=== PATIENT | male | born 1955 | race American Indian/Alaskan Native ===

== ENCOUNTER 2018-02-22 08:45 | Day surgery (SDC) | payer OTHER ==
--- NOTE | 2018-02-22 09:28 | Anesthesia Consultation ---
Anesthesia Consult and Med Hx Date of service: 02/22/18 - Airway Anesthetic Teeth Evaluation: Good ROM Head & Neck: Adequate Mental/Hyoid Distance: Adequate Mallampati Class: Class II Intubation Access Assessment: Good - Pulmonary Exam CTA: Yes - Cardiac Exam Cardiac Exam: RRR - Pre-Operative Health Status ASA Pre-Surgery Classification: ASA3 Proposed Anesthetic Plan: MAC - Pulmonary Hx Smoking: Yes Hx Asthma: No SOB: Yes COPD: No Hx Pneumonia: Yes Hx Sleep Apnea: No - Cardiovascular System Hx Hypertension: Yes Hx Coronary Artery Disease: Yes (CAROTID STENOSIS) Hx Heart Attack/AMI: Yes (1999) Hx Angina: Yes (NO NTG USE) Hx Peripheral Vascular Disease: Yes - Central Nervous System Hx Seizures: No CVA: Yes (2010) Hx Psychiatric Problems: Yes - Gastrointestinal Hx Gastroesophageal Reflux Disease: Yes (MILD) - Endocrine Hx End Stage Renal Disease: No - Other Systems Hx Alcohol Use: No Hx Substance Use: No Hx Cancer: No Hx Obesity: No
--- NOTE | 2018-02-22 11:19 | Anesthesia Day of Surgery ---
Anesthesia Day of Surgery - Day of Surgery Patient Examined: Yes Patient H&P Reviewed: Yes Patient is NPO: Yes Beta Blockers: Yes
[2018-02-22] MEDS ORDERED: DIPRIVAN 10 MG/ML IV ONE (11:48)
[2018-02-22] MEDS ORDERED: NACL 0.9% 1000 ML 1,000 ML IV SCH (12:00)
[2018-02-22] MEDS ORDERED: NORMODYNE IV ONE (13:10)
[2018-02-22] MEDS: NORMODYNE IV PRN ×2 (13:12→13:26)
[2018-02-22] MEDS ORDERED: XYLOCAINE MPF 2% ONE (13:30)
--- NOTE | 2018-02-22 13:38 | Operative Report ---
Operative Report Operative Report: Date of procedure: 02/22/2018 Procedure: Esophagogastroduodenoscopy with multiple mucosal biopsies. Attending physician: Ricki Recinos MD Mining Analyst: Ricki Recinos MD Indication: Patient is a 63-year-old male who presented history of dysphagia. He also describes recurrent indigestion or heartburn. Patient has underlying history of cerebrovascular accident and has had oropharyngeal dysphagia. There has been a concern, whether patient's dysphagia is purely oropharyngeal or if patient has a mechanical cause of obstruction as well. A consideration has been in place as to the cause of patient's ineffective oral intake and concerns as to whether patient has a mechanical cause of obstruction which is impeding his ability to swallow or if he is unable to propagate boluses from the back of his mouth into the esophagus due to well-defined oropharyngeal dysphagia. It is felt however that if patient does have mechanical obstruction , he may benefit from esophageal dilation. However if the endoscopic findings suggest that patient does not have a mechanical cause of obstruction, then the endoscopic findings will be helpful to provide additional clarification regarding patient's ability to take orally and therefore help direct his treatment further. This endoscopy therefore is done under these circumstances. It is hoped that the endoscopic findings, will hopefully help direct patient's treatment further. Consent: Informed consent was obtained after advising the patient and family regarding nature of this procedure, its indications, potential benefits as well as possible complications including but not limited to bleeding perforation and adverse reaction to medication, infection as well as other cardiopulmonary complications. An informed written and verbal consent was then obtained after due opportunity was provided for questions and answers. Monitoring: Patient was monitored continuously with pulse oximetry and electrocardiographic recordings as well as blood pressure recordings. Vital signs remained stable throughout this procedure with no untoward events. Preoperative assessment: Patient was assessed immediately prior to this procedure for capacity to tolerate monitored anesthesia care and moderate sedation as well as general anesthesia. Patient's ASA classification is 3, Mallampati class is 2, Hyomental distance is 3. Instrument: Origin Digital video endoscope Medications: Propofol, given intravenously in divided doses. For details please refer to anesthesia records. Description of procedure: Patient was placed in the left lateral decubitus position after achieving sedation, the endoscope was introduced into the esophagus under direct vision. It was then advanced beyond the esophagus into the stomach and then beyond the stomach into the duodenum and to the second portion of the duodenum. It was subsequently withdrawn with careful inspection of all mucosal surfaces with the following findings. Findings: The esophagus was widely patent with no evidence of a stricture. There was mild erosive esophagitis involving the distal esophagus. There was a diminutive hiatal hernia. There was erythema in the gastric antrum with gastric antral erosions. Biopsies were obtained from the antrum for histopathology. The duodenum was normal to second portion. Impression: Mild erosive esophagitis. Hiatal hernia. Gastric antral erythema. Gastric antral erosions. Plan: Follow pathology report. Continue treatment with proton pump inhibitors. There is no evidence of stricturing this patient. It appears that his problems swallowing is purely due to oropharyngeal dysphagia. It may well be that patient will benefit from a gastrostomy tube placement in the near future.
[2018-02-22] MEDS ORDERED: DILAUDID IV PRN (13:47)
[2018-02-22] MEDS ORDERED: DILAUDID ONE (13:49)
--- NOTE | 2018-02-22 13:57 | Discharge Summary ---
Short Stay Discharge Plan Activity: advance as tolerated Weight Bearing Status: Partial Weight Bearing Diet: thickened liquids, other (Mechanical soft diet) Additional Instructions: Post Sedation D/C Instructions When you return home you may resume your regular diet unless otherwise directed. Go directly home from the hospital and rest quietly. You may resume normal activities tomorrow. Do NOT drive, return to work, operate any machinery or make any important personal or business decisions today. Do NOT drink any alcohol or take nerve or sleeping drugs. They add to the effects of the medicine still present in your body. Follow up with: JANES EDWARDS MD [Primary Care Provider] - 7 Days
[2018-02-22] MEDS ORDERED: APRESOLINE IV ONE (14:00)
[2018-02-22 14:16] VITALS: BP 131/84
== END 2018-02-22 08:46 | disposition home or self-care (01) ==
LOC: GIO 08:45
PROVIDERS: ATTEND Internal Medicine Gastroenterology
DX: K21.0 Gastro-esophageal reflux disease with esophagitis (principal); K31.89 Other diseases of stomach and duodenum; K44.9 Diaphragmatic hernia without obstruction or gangrene; I10 Essential (primary) hypertension; I25.10 Atherosclerotic heart disease of native coronary artery without angina pectoris; I25.2 Old myocardial infarction; I73.9 Peripheral vascular disease, unspecified; F17.200 Nicotine dependence, unspecified, uncomplicated; Z86.73 Personal history of transient ischemic attack (TIA), and cerebral infarction without residual deficits; Z88.0 Allergy status to penicillin
CPT/HCPCS: 43239; 88305; 88342; J0360; J1170; J2704; J7030

== ENCOUNTER 2018-03-03 09:17 | Outpatient (CLI) | payer OTHER ==
--- NOTE | 2018-03-03 10:47 | Fluoroscopy Report ---
MODIFIED BARIUM SWALLOW INDICATION: Dysphagia. COMPARISON: None similar. FINDINGS: Fluoroscopy with video provided by radiologist for speech therapist to assess the swallowing mechanism. Food items of various consistencies given. Aspiration noted. Few small surgical clips in the neck. Edentulous jaw. One image recorded. IMPRESSION: Successful modified barium swallow. Please refer to detailed report from speech pathologist. Thank you for the opportunity to participate in this patient's care.
== END 2018-03-03 09:18 | disposition home or self-care (01) ==
LOC: PT 09:17
PROVIDERS: ATTEND Family Medicine
DX: I69.991 Dysphagia following unspecified cerebrovascular disease (principal); I69.922 Dysarthria following unspecified cerebrovascular disease; M27.9 Disease of jaws, unspecified; I10 Essential (primary) hypertension; J44.9 Chronic obstructive pulmonary disease, unspecified; E78.5 Hyperlipidemia, unspecified; Z98.890 Other specified postprocedural states
CPT/HCPCS: 74230

== ENCOUNTER 2018-04-08 12:33 | Day surgery (SDC) | payer OTHER ==
[~2018-04-08 12:33] MED LIST: NACL 0.9% 1000 ML 1,000 ML IV SCH; NACL 0.9% 1000 ML 1,000 ML ONE
[2018-04-08] MEDS ORDERED: NORMODYNE IV SCH (13:46)
--- NOTE | 2018-04-08 13:47 | Anesthesia Consultation ---
Anesthesia Consult and Med Hx Date of service: 04/08/18 - Airway Anesthetic Teeth Evaluation: Edentulous ROM Head & Neck: Adequate Mental/Hyoid Distance: Adequate Mallampati Class: Class III Intubation Access Assessment: Probably Good - Pulmonary Exam CTA: Yes - Cardiac Exam Cardiac Exam: RRR - Pre-Operative Health Status ASA Pre-Surgery Classification: ASA4 Proposed Anesthetic Plan: MAC - Pulmonary Hx Smoking: Yes (quit) Hx Asthma: No SOB: Yes COPD: No Hx Pneumonia: Yes Hx Sleep Apnea: No - Cardiovascular System Hx Hypertension: Yes Hx Coronary Artery Disease: Yes (CAROTID STENOSIS) Hx Heart Attack/AMI: Yes Hx Angina: Yes (NO NTG USE) Hx Peripheral Vascular Disease: Yes - Central Nervous System Hx Seizures: No CVA: Yes Hx Psychiatric Problems: Yes - Gastrointestinal Hx Gastroesophageal Reflux Disease: Yes (MILD) - Endocrine Hx End Stage Renal Disease: No - Other Systems Hx Alcohol Use: No Hx Substance Use: No Hx Cancer: No Hx Obesity: No
[2018-04-08] MEDS ORDERED: NORMODYNE IV ONE (13:48)
--- NOTE | 2018-04-08 13:48 | Anesthesia Day of Surgery ---
Anesthesia Day of Surgery - Day of Surgery Patient Examined: Yes Patient H&P Reviewed: Yes Patient is NPO: Yes
[2018-04-08] MEDS ORDERED: DIPRIVAN 10 MG/ML IV ONE (15:08)
[2018-04-08] MEDS ORDERED: XYLOCAINE 1% 20 mL ONE (15:10)
[2018-04-08] MEDS ORDERED: TRIPLE ANTIBIOTIC TP ONE (15:13)
[2018-04-08] MEDS ORDERED: VERSED ONE (15:18)
[2018-04-08] MEDS ORDERED: GARAMYCIN/NS 80 MG/100 ML 100 ML IV ONE (15:18)
[2018-04-08] MEDS ORDERED: CLEOCIN 600 MG/50 mL 600 MG/50 ML BAG IV NR (15:30)
--- NOTE | 2018-04-08 16:04 | Operative Report ---
Operative Report Operative Report: Operative Report: Date of procedure: 04/08/2018 Procedure: Esophagogastroduodenoscopy with attempted percutaneous endoscopic gastrostomy tube placement. Attending physician: Ricki Recinos MD Logging Specialist: Ricki Recinos MD Indication: Patient is an 63-year-old male who presented with a history of oropharyngeal dysphagia, poor oral intake and weight loss. Patient's oropharyngeal dysphagia is resulted from a stroke. Patient has had continued evaluation by speech pathology and also trial of multiple consistencies of food. His oral intake remains grossly inadequate on account of his oropharyngeal dysphagia. It was felt that this was now medically necessary to place a gastrostomy tube to help with enteral feeding and administration of medications. Patient is moderately malnourished. An upper endoscopy is done to place a percutaneous endoscopic gastrostomy tube for enteral feeding and administration of medications. Consent: Informed consent was obtained after advising the patient and family regarding nature of this procedure, its indications, potential benefits as well as possible complications including but not limited to bleeding perforation and adverse reaction to medication, infection as well as other cardiopulmonary complications. An informed written and verbal consent was then obtained after due opportunity was provided for questions and answers. Monitoring: Patient was monitored continuously with pulse oximetry and electrocardiographic recordings as well as blood pressure recordings. Vital signs remained stable throughout this procedure with no untoward events. Preoperative assessment: Patient was assessed immediately prior to this procedure for capacity to tolerate monitored anesthesia care and moderate sedation as well as general anesthesia. Patient's ASA classification is 3, Mallampati class is 2, Hyomental distance is 3. Instrument: YUPIQ video endoscope. 20 [place] percutaneous endoscopic gastrostomy tube kit Medications: Propofol given intravenously in divided doses. For details please refer to anesthesia records. Gentamicin 1 g given intravenously immediately prior to beginning of procedure Clindamycin was also to be given however was not administered as procedure was not completed Description of procedure: Patient was placed in a supine position after achieving sedation, the oral cavity was sprayed cleaned with Peridex. The anterior abdominal wall was pretty clean with Betadine and alcohol. The endoscope was introduced into the esophagus under direct vision. It was then advanced beyond the esophagus into the stomach and then beyond the stomach into the duodenum and to the second portion of the duodenum. It was subsequently withdrawn with careful inspection of all mucosal surfaces. A precise location for the placement of the percutaneous endoscopic gastrostomy tube could not be identified using direct light transillumination and one-to-one finger indentation in any suitable position as the stomach was predominantly intrathoracic. The following endoscopic findings were noted. Findings: Esophagus: The Z line was irregular otherwise the esophagus was normal. There was mild erythema in the gastric antrum. There was a small hiatal hernia seen on entry into the stomach. A percutaneous endoscopic gastrostomy tube could not be successfully placed due to intrathoracic location of the stomach and inability to safely transilluminate the light through the gastric wall and perform a reliable one-to-one finger indentation. The duodenum was normal to the second portion. Impression: Irregular Z line Hiatal hernia Gastric antral erythema. Inability to place gastrostomy tube due to intrathoracic location of the stomach Plan: Patient will need a surgical gastrostomy tube or a laparoscopic assisted percutaneous endoscopic gastrostomy tube placement
--- NOTE | 2018-04-08 16:05 | Discharge Summary ---
Short Stay Discharge Plan Activity: advance as tolerated Weight Bearing Status: Non-Weight Bearing Diet: thickened liquids Additional Instructions: Post Sedation D/C Instructions When you return home you may resume your regular diet unless otherwise directed. -Go directly home from the hospital and rest quietly. You may resume normal activities tomorrow. -Do NOT drive, return to work, operate any machinery or make any important personal or business decisions today. -Do NOT drink any alcohol or take nerve or sleeping drugs. They add to the effects of the medicine still present in your body. Follow up with Dr. Recinos in 2 weeks for treatment plan. Follow up with: JANES EDWARDS MD [Primary Care Provider] - 7 Days
[2018-04-08 16:30] VITALS: BP 145/98
== END 2018-04-08 12:34 | disposition home or self-care (01) ==
LOC: GIO 12:33
PROVIDERS: ATTEND Internal Medicine Gastroenterology
PROC: 0DH63UZ Insertion of Feeding Device into Stomach, Percutaneous Approach (ICD-10-PCS; principal; 2018-04-08)
DX: R63.3 Feeding difficulties (principal); R13.10 Dysphagia, unspecified; K44.9 Diaphragmatic hernia without obstruction or gangrene; K31.89 Other diseases of stomach and duodenum; K22.8 Other specified diseases of esophagus; I10 Essential (primary) hypertension; I25.2 Old myocardial infarction; I25.119 Atherosclerotic heart disease of native coronary artery with unspecified angina pectoris; I73.9 Peripheral vascular disease, unspecified; I65.29 Occlusion and stenosis of unspecified carotid artery; K21.9 Gastro-esophageal reflux disease without esophagitis; Z86.73 Personal history of transient ischemic attack (TIA), and cerebral infarction without residual deficits; Z87.891 Personal history of nicotine dependence; Z88.0 Allergy status to penicillin
CPT/HCPCS: 43246; J1580; J2250; J2704; J7030; A6250